=== PATIENT | female | born 1955 | race Two or more races ===

== ENCOUNTER → 2023-02-01 | Emergency (ER) | payer OTHER ==
[~2023-02-01] VITALS: Ht 152.4 cm; Wt 74.4 kg
[2023-02-01 15:44] LABS: HEMATOCRIT 42.3 % (36.0-45.00); HEMOGLOBIN 13.7 g/dL (12.0-15.00); MEAN CELL VOLUME 88.2 fL (80.00-100.00); MEAN CORPUSCULAR HEMOGLOBIN 28.6 pg (27.00-32.0); MEAN CORPUSCULAR HGB CONC 32.4 g/dl (32.0-36.0); PLATELET COUNT 307 K/uL (150-450); RED CELL DISTRIBUTION WIDTH 14.6 % (11.5-14.5)
[2023-02-01 16:25] LABS: ALBUMIN 4.1 gm/dL (3.4-5.0); BILIRUBIN TOTAL 0.61 mg/dL (0.3-1.2); CALCIUM 9.5 mg/dL (8.5-10.1); CREATININE SERUM 0.89 mg/dL (0.55-1.02); GFR 63.46; GLOBULINA 3.8 G/DL (2.4-3.5); POTASSIUM 3.83 mEq/L (3.5-5.1); TOTAL PROTEIN 7.9 gm/dL (6.4-8.2)
== END | disposition home or self-care (01) ==
LOC: ER 12:57
PROVIDERS: General Practice
DX: L50.9 Urticaria, unspecified (principal); Z88.6 Allergy status to analgesic agent

== ENCOUNTER 2023-11-09 08:24 | Outpatient (CLI) | payer OTHER | END 2023-11-09 08:28 | disposition home or self-care (01) | LOC: SONOGRAMA 08:24 | DX: M25.511 Pain in right shoulder (principal) ==

== ENCOUNTER 2024-03-19 07:10 | Emergency (ER) | payer OTHER ==
[~2024-03-19] VITALS: Ht 157.5 cm; Wt 71.2 kg
[2024-03-19] MEDS ORDERED: ZESTRIL10 M1 (07:39)
[2024-03-19] MEDS ORDERED: ACID REDUCER20 M1 (07:39)
[2024-03-19 07:40] VITALS: BP 154/88; O2SAT 100
[2024-03-19] MEDS ORDERED: MAG HYDROX/ALUMINUM HYD/SIMETH 30 ML BLIST.PACK PO ONE ×2 (10:00→10:03)
[2024-03-19] MEDS ORDERED: FAMOtidine 10 MG/ML (4ML VIAL) IV ONE (10:00)
[2024-03-19] MEDS ORDERED: FAMOTIDINE/PF 20 MG/2 ML VIAL ONE (10:03)
[2024-03-19 11:44] LABS: ALBUMIN 3.8 gm/dL (3.4-5.0); BILIRUBIN TOTAL 0.63 mg/dL (0.3-1.2); CALCIUM 9.3 mg/dL (8.5-10.1); CREATININE SERUM 0.77 mg/dL (0.55-1.02); GFR 74.77; GLOBULINA 4.1 G/DL (2.4-3.5); POTASSIUM 4.12 mEq/L (3.5-5.1); TOTAL PROTEIN 7.9 gm/dL (6.4-8.2)
[2024-03-19 11:59] LABS: URINE APPEARANCE Clear; URINE BILIRRUBIN Negative (NEGATIVE); URINE BLOOD Negative; URINE COLOR Yellow; URINE GLUCOSE Negative (NEGATIVE); URINE KETONE Negative (NEGATIVE); URINE LEUKOCYTE Negative; URINE NITRATE Negative; URINE PROTEIN Negative (NEGATIVE); URINE UROBILINOGEN 0.2 E.U./dl
[2024-03-19 12:02] LABS: URINE BACTERIA 133.3 uL (0.0-1933); URINE EPITHELIAL CELLS 9.3 uL (0.0-38.8)
[2024-03-19 12:15] LABS: URINE WBC 1.2 uL (0.0-23.2)
== END 2024-03-19 12:57 | disposition home or self-care (01) ==
LOC: ER 07:12
PROVIDERS: General Practice
DX: R10.13 Epigastric pain (principal); E11.9 Type 2 diabetes mellitus without complications; Z79.84 Long term (current) use of oral hypoglycemic drugs; I10 Essential (primary) hypertension; Z88.6 Allergy status to analgesic agent